=== PATIENT | female | born 1985 | race Caucasian/White ===

== ENCOUNTER 2016-09-20 08:05 | Emergency (ER) | payer OTHER ==
[2016-09-20 08:28] LABS: BASOPHIL 0.3 % (0-2); BILIRUBIN NEGATIVE (NEGATIVE); BLOOD NEGATIVE Ery/uL (NEGATIVE); CLARITY HAZY (CLEAR); COLOR YELLOW (YELLOW); EOSINOPHIL 6.5 % (0-5); GLUCOSE (U) NORMAL (NORMAL); HCT 44.3 % (37.0-47.0); KETONE (U) NEGATIVE (NEGATIVE); LEUKOCYTES 1+ Leu/uL (NEGATIVE); LYMPHOCYTE 31.8 % (15-48); MCHC 33.9 g/dL (32.0-36.0); MCV 97.6 fL (78.0-100.0); MONOCYTE 6.9 % (0-12); MPV 10.1 fL (6.0-9.5); NEUTROPHIL 54.5 % (41-80); NITRITE NEGATIVE (NEGATIVE); PLT 190 K/uL (150-400); PROTEIN NEGATIVE (NEGATIVE); RBC 4.54 M/uL (4.20-5.40); RDW 13.9 % (11.5-14.0); UROBILINOGEN 0.2 mg/dL (0.2-1.0); WBC 5.8 K/uL (4.0-10.5); pH 6.5 (5.0-9.0)
[2016-09-20 08:36] LABS: BACTERIA 2+
[2016-09-20 08:43] LABS: CREATININE 0.7 mg/dL (0.5-1.0); POTASSIUM 3.8 mmol/L (3.5-5.1)
== END 2016-09-20 11:18 | disposition home or self-care (01) ==
LOC: FER 08:05
PROVIDERS: Internal Medicine
DX: N20.0 Calculus of kidney (principal); N39.0 Urinary tract infection, site not specified; M62.830 Muscle spasm of back; G89.29 Other chronic pain; Z87.442 Personal history of urinary calculi; Z98.890 Other specified postprocedural states
CPT/HCPCS: 36415; 80048; 81001; 85025; 87088; J1100; J1170; J1885; J2405

== ENCOUNTER 2021-06-06 09:52 | Emergency (ER) | payer OTHER ==
[~2021-06-06 09:52] MED LIST: BACLOFEN 10MG T10 MG PO; BACTRIM DS TAB1 EACH PO; BENTYL10 MG PO; CIPRO500 MG PO; FLEXERIL5 MG PO; FLOMAX 0.4 MG0.4 MG PO; FLOMAX0.4 MG PO; IBUPROFEN800 MG PO; MACROBID100 MG PO; MEDROL 4MG DOSEP4 MG PO; NAPROXEN500 MG PO; NORCO 5-325 TA1 EACH PO; NORCO 7.5-3251 EACH PO; PERCOCET 5-3251 EACH PO; PHENERGAN25 M1 PO; TESSALON PERLE100 MG PO; ZOFRAN4 MG PO; ZOFRAN4 MG SL; ZYRTEC-D TABLE1 EACH PO
== END 2021-06-06 13:04 | disposition left against medical advice (07) ==
LOC: FER 09:52
DX: M25.512 Pain in left shoulder (principal); Z53.21 Procedure and treatment not carried out due to patient leaving prior to being seen by health care provider

== ENCOUNTER 2022-02-04 10:29 | Emergency (ER) | payer OTHER ==
[2022-02-04 11:27] LABS: BASOPHIL 0.3 % (0-2); EOSINOPHIL 2.8 % (0-5); HCT 43.7 % (37.0-47.0); HGB 14.8 g/dl (12.5-16.0); LYMPHOCYTE 12.4 % (15-48); MCH 34.3 pg (25.0-31.0); MCHC 33.9 g/dL (32.0-36.0); MCV 101.2 fL (78.0-100.0); MONOCYTE 7.2 % (0-12); MPV 9.7 fL (6.0-9.5); NEUTROPHIL 76.8 % (41-80); NRBC 0; PLT 229 K/uL (150-400); RBC 4.32 M/uL (4.20-5.40); RDW 12.9 % (11.5-14.0)
[2022-02-04 11:42] LABS: ALBUMIN 3.6 g/dL (3.4-5.0); BILIRUBIN - TOTAL 0.4 mg/dL (0.2-1.0); BUN/CREAT RATIO (CALC) 17.6 RATIO; CREATININE 0.68 mg/dL (0.51-0.95); GLOBULIN (CALCULATION) 3.2 g/dL; POTASSIUM 3.9 mmol/L (3.5-5.1); TOTAL PROTEIN 6.8 g/dL (6.4-8.2)
[2022-02-04] MEDS ORDERED: NAPROXEN500 MG PO (13:07)
[2022-02-04] MEDS ORDERED: AMOX TR-K CLV1 EAC4 PO (13:07)
[2022-02-04] MEDS ORDERED: VIBRAMYCIN100 MG PO (13:07)
[2022-02-04] MEDS ORDERED: PERCOCET 5-3251 EACH PO (13:07)
== END 2022-02-04 14:25 | disposition home or self-care (01) ==
LOC: FER 10:29
PROVIDERS: Internal Medicine
DX: L02.611 Cutaneous abscess of right foot (principal); L03.115 Cellulitis of right lower limb; Z20.822 Contact with and (suspected) exposure to COVID-19; Z28.310 Unvaccinated for COVID-19
CPT/HCPCS: 36415; 73700; 80053; 84145; 85025; J1170; J2405; J3370; J7030; J7040; U0002